=== PATIENT | male | born 1990 | race Two or more races ===

== ENCOUNTER 2020-10-16 19:39 | Emergency (ER) | payer OTHER ==
[~2020-10-16] VITALS: Ht 172.7 cm; Wt 128.2 kg
[2020-10-17] MEDS ORDERED: LIDOCAINE 1% 10 ML VIAL ID ONE
[2020-10-17 01:50] VITALS: BP 138/72
== END 2020-10-17 02:30 | disposition home or self-care (01) ==
LOC: EMS 19:42
DX: S61.213A Laceration without foreign body of left middle finger without damage to nail, initial encounter (principal); W26.8XXA Contact with other sharp object(s), not elsewhere classified, initial encounter; Y93.89 Activity, other specified; Y92.89 Other specified places as the place of occurrence of the external cause; Y99.0 Civilian activity done for income or pay
CPT/HCPCS: 12001; 99282; J3490